=== PATIENT | male | born 1960 | race Caucasian/White ===

== ENCOUNTER 2016-11-18 07:49 | Emergency (ER) | payer OTHER, BC ==
[~2016-11-18] VITALS: Ht 180.3 cm; Wt 96.3 kg
[2016-11-18] MEDS ORDERED: TYLENOL WITH C1 EACH PO (09:23)
[2016-11-18 09:51] VITALS: BP 140/99
[2016-11-18] MEDS ORDERED: ZOFRAN ODT4 MG PO (10:36)
== END 2016-11-18 09:52 | disposition home or self-care (01) ==
LOC: EME 07:49
DX: S40.012A Contusion of left shoulder, initial encounter (principal); S30.0XXA Contusion of lower back and pelvis, initial encounter; S13.9XXA Sprain of joints and ligaments of unspecified parts of neck, initial encounter; V59.40XA Driver of pick-up truck or van injured in collision with unspecified motor vehicles in traffic accident, initial encounter; F17.200 Nicotine dependence, unspecified, uncomplicated
CPT/HCPCS: 72040; 72100; 73030; 99281; 99284